=== PATIENT | male | born 1980 | race Caucasian/White ===

== ENCOUNTER → 2016-12-25 | Outpatient (CLI) | payer OTHER, BC ==
[~2016-12-25] MED LIST: AMPH30TA2 PO; GABA1CAP PO; LISI-461 PO; OMEG10007 PO; SODI500S PO; VITAMIN E PO
== END | disposition home or self-care (01) ==
LOC: C.RDSM 13:10
PROVIDERS: ATTEND Physical Medicine & Rehabilitation Sports Medicine
DX: M54.16 Radiculopathy, lumbar region (principal)

== ENCOUNTER → 2016-12-26 | Outpatient (CLI) | payer OTHER, BC ==
--- NOTE | 2016-12-26 20:24 | DIAGNOSTIC IMAGING REPORT ---
MRI OF THE LUMBAR SPINE WITHOUT CONTRAST CLINICAL HISTORY: Low back pain with left-sided radiculopathy. COMPARISON STUDY: MRI of the lumbar spine August 22, 2016 and lumbar spine radiographs December 25, 2016. TECHNIQUE: Utilizing a 1.5 Kim magnet and dedicated coil, multiplanar, multiecho imaging of the lumbar spine was performed without IV contrast. FINDINGS: For purposes of numbering on this exam, the L5-S1 disc space is assigned to axial image 25 of 28. Alignment of lumbar spine is anatomic. Vertebral body heights are maintained. There is no intracanalicular mass or fluid collection. Conus terminates at the upper L1 level. Paravertebral soft tissues are unremarkable. There is interval postsurgical findings at the right L3-L4 level suggestive of a hemilaminotomy. Mild edema within the adjacent musculature is likely postsurgical. There is no fluid collection. Postoperative findings are suboptimally assessed on this exam given the lack of postcontrast imaging. L1-2: The central canal and neural foramen are patent. L2-3: The central canal and neural foramen are patent. L3-4: Interval postsurgical findings are noted. Central canal and right lateral recess as well as right neural foraminal narrowing has improved since exam of August 22, 2016. L4-5: There is a disc bulge with a superimposed left paracentral disc protrusion with mild inferior subligamentous migration. This is increased since prior exam. This results in at least moderate narrowing of the left lateral recess. The neural foramen are patent. L5-S1: There is disc space narrowing with disc bulge. There is minimal narrowing of the central canal and neural foramen. IMPRESSION: 1. Disc bulge with superimposed left paracentral disc protrusion at L4-L5 that results in moderate narrowing of the left lateral recess with suspected mass effect upon the descending left L5 nerve root. These findings have progressed since MRI of August 22, 2016. 2. Interval right hemilaminotomy at L3-L4. Interval improvement in central canal, right lateral recess and right neural foraminal narrowing at this level since prior exam. Electronically signed by: Azam Ferguson M.D. 12/26/2016 8:22 PM Dictated Date/Time: 12/26/2016 7:49 PM
== END | disposition home or self-care (01) ==
LOC: C.MRI 17:04
PROVIDERS: ATTEND Physical Medicine & Rehabilitation Sports Medicine
DX: M54.16 Radiculopathy, lumbar region (principal)